=== PATIENT | female | born 1975 | race Caucasian/White ===

== ENCOUNTER 2016-10-28 19:45 | Inpatient (IN) | payer MEDICARE, OTHER ==
[~2016-10-28] VITALS: Ht 157.5 cm; Wt 95.9 kg
[~2016-10-28 19:45] MED LIST: BACLOFEN10 MG PO; BACLOFEN20 MG PO; BACTRIM DS TAB1 EACH PO; CLARITIN10 MG PO; ECHINACEA400 MG PO; FLEXERIL10 MG PO; FUROSEMIDE20 MG PO; HIBICLENS118 ML TOP; HYDROCODON-ACE1 EA10 PO; HYDROCODON-ACE1 EA11 PO; HYDROXYZINE HCL50 MG PO; KEFLEX500 MG PO; LASIX20 MG PO; LYRICA100 MG PO; MACROBID 100 M100 MG PO; MELOXICAM15 MG PO; NORCO 5-325 TA1 EACH PO; OMEPRAZOLE40 MG PO; PERCOCET 10-321 EACH PO; PERCOCET 5-3251 EACH PO; POTASSIUM CHLO20 ME2 PO; PREDNISONE20 MG PO; PROVENTIL HFA6.7 GM INH; RANITIDINE HCL150 MG PO; ROBAXIN500 MG PO; SEPTRA DS TABL1 EACH PO; TIAGABINE HCL2 MG PO; ULTRAM50 MG PO; VENTOLIN HFA18 GM INH; VISTARIL25 MG PO; VOLTAREN75 MG PO; WELLBUTRIN SR200 MG PO
[2016-10-28] MEDS ORDERED: OXAPROZIN600 MG PO (20:10)
[2016-10-29] MEDS ORDERED: IMITREX50 MG PO (00:45)
[2016-10-30] MEDS ORDERED: NORCO 5-325 TA1 EACH PO (09:42)
[2016-10-30] MEDS ORDERED: BACTROBAN NASAL1 GM NAS (09:43)
[2016-10-30] MEDS ORDERED: BACTRIM DS TAB1 EACH PO (09:44)
[2016-10-30] MEDS ORDERED: CLEOCIN HCL300 MG PO (09:46)
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
== END 2016-10-30 10:40 | disposition home or self-care (01) | DRG 581 ==
LOC: ED 19:45 → MS 19:47 → ED 19:47 → MS 22:59 → ED 22:59 → MS 10-29 16:35
PROVIDERS: ADMIT Colon & Rectal Surgery
PROC: 0J9D0ZZ Drainage of Right Upper Arm Subcutaneous Tissue and Fascia, Open Approach (ICD-10-PCS; principal; 2016-10-29 10:45)
DX: L02.411 Cutaneous abscess of right axilla (principal); F31.9 Bipolar disorder, unspecified; G62.9 Polyneuropathy, unspecified; J45.998 Other asthma; G89.29 Other chronic pain; F17.200 Nicotine dependence, unspecified, uncomplicated; Z88.8 Allergy status to other drugs, medicaments and biological substances; Z79.899 Other long term (current) drug therapy; Z94.5 Skin transplant status; Z87.828 Personal history of other (healed) physical injury and trauma
CPT/HCPCS: 00400; 76881; 80053; 85025; 87040; 87070; 87075; 87076; 87077; 87185; 87205; 94760; 94762; 99406; J1170; J1644; J2405; J2704; J3010; J3370; J7060

== ENCOUNTER 2016-11-25 21:05 | Emergency (ER) | payer MEDICARE, OTHER ==
[~2016-11-25] VITALS: Ht 157.5 cm; Wt 91.2 kg
[~2016-11-25 21:05] MED LIST changes: +BACTROBAN NASAL1 GM NAS; +CLEOCIN HCL300 MG PO; +IMITREX50 MG PO; +OXAPROZIN600 MG PO
[2016-11-26] MEDS ORDERED: PROTONIX40 MG PO (00:19)
== END 2016-11-26 00:33 | disposition home or self-care (01) ==
LOC: ED 21:05
DX: R10.11 Right upper quadrant pain (principal); F31.9 Bipolar disorder, unspecified; J45.909 Unspecified asthma, uncomplicated; F17.200 Nicotine dependence, unspecified, uncomplicated; Z98.51 Tubal ligation status; Z90.49 Acquired absence of other specified parts of digestive tract; Z88.8 Allergy status to other drugs, medicaments and biological substances; Z79.899 Other long term (current) drug therapy
CPT/HCPCS: 71020; 74177; 80053; 81001; 83690; 84703; 85025; 85379; 96361; 96374; 99284; J1885; J7030; Q9967

== ENCOUNTER 2017-04-26 14:47 | Emergency (ER) | payer MEDICARE, OTHER ==
[~2017-04-26] VITALS: Ht 157.5 cm; Wt 91.2 kg
[~2017-04-26 14:47] MED LIST changes: +PROTONIX40 MG PO
== END 2017-04-26 15:09 | disposition short-term general hospital (02) ==
LOC: ED 14:47
DX: R09.81 Nasal congestion (principal)

== ENCOUNTER 2017-06-23 10:19 | Emergency (ER) | payer MEDICARE, OTHER ==
[~2017-06-23] VITALS: Ht 157.5 cm; Wt 73.9 kg
[2017-06-23] MEDS ORDERED: TESSALON PERLE100 MG PO (11:20)
[2017-06-23] MEDS ORDERED: TAMIFLU75 MG PO (11:20)
== END 2017-06-23 11:27 | disposition home or self-care (01) ==
LOC: ED 10:19
DX: J10.1 Influenza due to other identified influenza virus with other respiratory manifestations (principal); F31.9 Bipolar disorder, unspecified; J45.909 Unspecified asthma, uncomplicated; F17.200 Nicotine dependence, unspecified, uncomplicated; Z88.8 Allergy status to other drugs, medicaments and biological substances; Z79.899 Other long term (current) drug therapy
CPT/HCPCS: 71045; 80048; 85025; 87502; 94640; 99283

== ENCOUNTER 2017-07-02 14:47 | Emergency (ER) | payer MEDICARE, OTHER ==
[~2017-07-02] VITALS: Ht 157.5 cm; Wt 73.9 kg
[~2017-07-02 14:47] MED LIST changes: +TAMIFLU75 MG PO; +TESSALON PERLE100 MG PO
[2017-07-02] MEDS ORDERED: QUETIAPINE FUMA50 MG PO (17:13)
[2017-07-02] MEDS ORDERED: ZOFRAN ODT4 MG PO (17:41)
== END 2017-07-02 17:58 | disposition home or self-care (01) ==
LOC: ED 14:47
DX: K85.90 Acute pancreatitis without necrosis or infection, unspecified (principal); F17.200 Nicotine dependence, unspecified, uncomplicated; Z88.8 Allergy status to other drugs, medicaments and biological substances; Z79.899 Other long term (current) drug therapy
CPT/HCPCS: 71045; 80053; 81001; 83690; 85025; 96374; 96375; 99284; J1200; J1630; J2405

== ENCOUNTER 2019-08-07 19:59 | Emergency (ER) | payer MEDICARE, OTHER ==
[~2019-08-07] VITALS: Ht 157.5 cm; Wt 68.0 kg
--- OUTSIDE RECORDS SUMMARY | ~2019-08-07 | XMS | Encounter Summary ---
Demographics + + + | Address | [address] | | | [place] [address] | + + + | Home Phone | | + + + | Preferred Language | Unknown | + + + | Marital Status | Unknown | + + + | Scientology Affiliation | Unknown | + + + | Race | Unknown | + + + | Ethnic Group | Unknown | + + + Author + + + | Author | [facility] | + + + | Organization | [facility] | + + + | Address | Unknown | + + + | Phone | Unavailable | + + + Care Team Providers + +------+ + | Care Respiratory Therapist Name | Role | Phone | + +------+ + PCP | Unavailable | + +------+ + Encounter Details +--------+ + + + + | Date | Type | Department | Care Team | Description | +--------+ + + + + | 07/14/ | ED Progress | [facility] | Gail Jama PA-C | ED Progress Note | | 2018 | | [address] | [address] | | | | Note-Transc | [place], [place] | [place] [address] | | | | ribed | [phone] | [phone] | | | | | | | | +--------+ + + + + Social History + +-------+ +--------+------+ | Tobacco Use | Types | Packs/Day | Years | Date | | | | | Used | | + +-------+ +--------+------+ | Never Assessed | | | | | + +-------+ +--------+------+ + + + | Sex Assigned at | Date Recorded | | | | + + + | Not on file | | + + + + + + + | Job Start Date | Occupation | Industry | + + + + | Not on file | Not on file | Not on file | + + + + + + + + | Travel History | Travel Start | Travel End | + + + + + + | No recent travel history available. | + + documented as of this encounter Plan of Treatment Not on filedocumented as of this encounter Visit Diagnoses Not on filedocumented in this encounter"
--- OUTSIDE RECORDS SUMMARY | ~2019-08-07 | XMS | Encounter Summary ---
Demographics + + + | Address | [address] | | | [place] [address] | + + + | Home Phone | | + + + | Preferred Language | Unknown | + + + | Marital Status | | + + + | Cheondoism Affiliation | Unknown | + + + | Race | Unknown | + + + | Ethnic Group | Unknown | + + + Author + + + | Author | [facility] | | | and [place] | + + + | Organization | [facility] | | | and [place] | + + + | Address | Unknown | + + + | Phone | Unavailable | + + + Support + + +---------+ + | Name | Relationship | Address | Phone | + + +---------+ + | Mala Wilkinson | ECON | Unknown | | + + +---------+ + Care Team Providers + +------+ + | Care Retinal Angiographer Name | Role | Phone | + +------+ + PCP | Unavailable | + +------+ + Encounter Details +--------+ + + + + | Date | Type | Department | Care Team | Description | +--------+ + + + + | 08/31/ | Hospital | [facility] | | | | 1997 | Encounter | [facility] | | | | | | CENTER [address] | | | | | | [place] [address] | | | | | | [address] | | | | | | [phone] | | | +--------+ + + + [...]
--- OUTSIDE RECORDS SUMMARY | ~2019-08-07 | XMS | Encounter Summary ---
Demographics + + + | Address | [address] | | | [place] [address] | + + + | Home Phone | | + + + | Preferred Language | Unknown | + + + | Marital Status | | + + + | Latter-Day Affiliation | Unknown | + + + | Race | Unknown | + + + | Ethnic Group | Unknown | + + + Author + + + | Author | [facility] | | | and [place] | + + + | Organization | [facility] | | | and [place] [...] Team Providers + +------+ + | Care Florist Supplies Salesperson Name | Role | Phone | + +------+ + | Lory Munoz MD | PCP | | + +------+ + Reason for Visit + + + | Reason | Comments | + + + | ED Follow-up | | + + + Encounter Details +--------+ + + + + | Date | Type | Department | Care Team | Description | +--------+ + + + + | 11/14/ | Telephone | [facility] | [facility] | ED Follow-up | | 2018 | | [facility] | [address] | | | | | EMERGENCY [address] | [place], | | | | | [place] | [place] [address] | | | | | [phone] | [phone] | | | | | [phone] | | | +--------+ + + + + Social History + +-------+ +--------+------+ | Tobacco Use | Types | Packs/Day | Years | Date | | | | | Used | | + +-------+ +--------+------+ | Current Every Day | | | | | | Smoker | | | | | + +-------+ +--------+------+ + +---+---+---+ | Smokeless Tobacco: | | | | | Never Used | | | | + +---+---+---+ + + +---------+ + | Alcohol Use | Drinks/Week | oz/Week | Comments | + + +---------+ + | Yes | | | rarely | + + +---------+ + + + + | Sex Assigned at [...]
--- OUTSIDE RECORDS SUMMARY | ~2019-08-07 | XMS | Clinical Summary ---
Demographics + + + | Address | [address] | | | [place] [address] | + + + | Home Phone | | + + + | Preferred Language | Unknown | + + + | Marital Status | | + + + | Uatsdin Affiliation | Unknown | + + + | Race | Unknown | + + + | Ethnic Group | Unknown | + + + Author + + + | Author | [facility] | | | and [place] | + + + | Organization | [facility] | | | and [place] [...] Team Providers + +------+ + | Care Verification Specialist Name | Role | Phone | + +------+ + | Lory Munoz MD | PCP | | + +------+ + Allergies + + + + + + | Active Allergy | Reactions | Severity | Noted | Comments | | | | | Date | | + + + + + + | Lamotrigine | Hives | | 11/12/19 | | | | | | 18 | | + + + + + + | Marijuana (Cannabis | | | 11/12/19 | | | Sativa) | | | 18 | | + + + + + + | Gabapentin | Other (See Comments) | | 11/12/19 | Seizures | | | | | 18 | | + + + + + + | Dronabinol | | | 11/12/19 | | | | | | 18 | | + + + + + + Medications No known medications Active Problems Not on file Social History + +-------+ +--------+------+ | Tobacco [...] recent travel history available. | + + Last Filed Vital Signs + + + + + | Vital Sign | Reading | Time Taken | Comments | + + + + + | Blood Pressure | 102/53 | 11/12/2017 2:01 AM | | | | | PDT | | + + + + + | Pulse | 62 | 11/12/2017 2:01 AM | | | | | PDT | | + + + + + | Temperature | 36.4 C (97.5 F) | 11/11/2017 11:10 PM | | | | | PDT | | + + + + + | Respiratory Rate | 16 | 11/11/2017 11:10 PM | | | | | PDT | | + + + + + | Oxygen Saturation | 99% | 11/12/2017 2:01 AM | | | | | PDT | | + + + + + | Inhaled Oxygen | - | - | | | Concentration | | | | + + + + + | Weight | 69.4 kg (153 lb) | 11/11/2017 11:10 PM | | | | | PDT | | + + + + + | Height | 157.5 cm (5' 2") | 11/11/2017 11:10 PM | | | | | PDT | | + + + + + | Body Mass Index | 27.98 | 11/11/2017 11:10 PM | | | | | PDT | | + + + + + Plan of Treatment + + + + + | Health Maintenance | Due Date | Last Done | Comments | + + + + + | Vaccine: | | | | | Pneumococcal 19-64 | 2 | | | | (1 of 1 - PPSV23) | | | | + + + + + | Vaccine: | | | | | Dtap/Tdap/Td (1 - | 7 | | | | Tdap) | | | | + + + + + | Cervical Cancer | | | | | Screening (Pap) | 6 | | | + + + + + | Adult Annual | | | | | Wellness Visit | 8 | | | + + + + + | Vaccine: Influenza | | | | | (Season Ended) | 0 | | | + + + + + Results Not on filefrom Last 3 Months Insurance + +--------+ +--------+ +---------+--------+ | Payer | Benefi | Subscriber | Effect | Phone | Address | Type | | | t Plan | ID | lefty | | | | | | / | | Dates | | | | | | Group | | | | | | + +--------+ +--------+ +---------+--------+ | MEDICARE | MEDICA | [id number] | 11/16/19 | [phone] | | Medica | | | RE | | 02-Pre | 5 | | re | | | PART A | | sent | | | | | | AND B | | | | | | + +--------+ +--------+ +---------+--------+ | [employer] | MODA | [id number] | | [phone] | | Medica | | MEDICAID HMO | HEALTH | | [phone]-[id number] | 1 | | id | | | MDCD | | esent | | | | | | HMO [place] | | | | | | + +--------+ +--------+ +---------+--------+ + +--------+ +--------+ + + | Guarantor Name | Accoun | Relation to | Date | Phone | Billing Address | | | t Type | Patient | of | | | | | | | | | | + +--------+ +--------+ + + | Marcie Gómez | Person | Self [birth year] | [address] | | | al/Anthony | | 1976 | [phone] | [place] | | | [place]allely | | | [address] (Home) | [address] | + +--------+ +--------+ + + Advance Directives + + + + + | Type | Date Recorded | Patient | Explanation | | | | Hot Top Liner | | + + + + + | Power of | | | | | Instrument Mechanics Supervisor | | | | + + + + + | Advance | 11/12/2017 12:28 | | | | Directive | AM | | | + + + + +
--- OUTSIDE RECORDS SUMMARY | ~2019-08-07 | XMS | Encounter Summary ---
Demographics + + + | Address | [address] | | | [place] [address] | + + + | Home Phone | | + + + | Preferred Language | Unknown | + + + | Marital Status | | + + + | Druze Affiliation | Unknown | + + + | Race | Unknown | + + + | Ethnic Group | Unknown | + + + Author + + + | Author | [facility] | | | and Justinoana | + + + | Organization | [facility] | | | and Justinoana | [...] Team Providers + +------+ + | Care Client Services Administrator Name | Role | Phone | + +------+ + | Lory Munoz MD | PCP | | + +------+ + Reason for Visit + + + | Reason | Comments | + + + | Allergic Reaction | | + + + | Shortness of Breath | | + + + | Hoarse | | + + + Encounter Details +--------+ + + + + | Date | Type | Department | Care Team | Description | +--------+ + + + + | 11/11/ | Emergency | [facility] | Rudy Pfeiffer MD | Laryngospasm | | 2018 - | | [facility] | [address] | (Primary Dx) | | | | EMERGENCY [address] [place], | | | 11/12/ | | [place] | [place] | | | 2017 | | [address] | [phone] | | | | | [phone] | | | +--------+ + + + [...] + + documented as of this encounter Last Filed Vital Signs + + + [...] | | + + + + + documented in this encounter Discharge Instructions Instructions Rudy Pfeiffer MD - 11/12/2017If you're having worsening trouble breathing or spe aking, please return to ER for recheck. Otherwise, you can follow-up with her regular docto r when you return home. documented in this encounter Plan of Treatment + +------+--------+ + + | Name | Type | Priori | Associated Diagnoses | Date/Time | | | | ty | | | + +------+--------+ + + | ED INFORMATION | FRANCI | Routin | | 11/11/2017 11:09 PM | | EXCHANGE | | e | | PDT | + +------+--------+ + + documented as of this encounter Procedures + +--------+ + + + | Procedure Name | Priori | Date/Time | Associated Diagnosis | Comments | | | ty | | | | + +--------+ + + + | ED INFORMATION | Routin | 11/11/2017 | | | | EXCHANGE | e | 11:09 PM | | | | | | PDT | | | + +--------+ + + + +---+--------+ | | | | | Proced | | | ure | | | Note - | | | Kim, | | | Lab In | | | | | | Hlseve | | | n - | | | 07/28/ | | | 2018 | | | 11:10 | | | PM PDT | | | | | | Format | | | ting | | | of | | | this | | | note | | | might | | | be | | | differ | | | ent | | | from | | | the | | | origin | | | al.KIM | | | E?NOTI | | | FICATI | | | ON?07/ | | | 28/201 | | | 8 | | | 23:06? | | | TINNEL | | | L, | | | CECI | | | M?MRN: | | | | | | [id number] | | | [id number] | | | his | | | patien | | | t has | | | regist | | | ered | | | at the | | | | | | Provid | | | ence | | | Region | | | al | | | Medica | | | l | | | [place] | | | t | | | Emerge | | | ncy | | | Depart | | | ment | | | For | | | more | | | inform | | | ation | | | visit: | | | | | | https: | | | //prov | | | .ediec | | | arepla | | | n.com/ | | | patien | | | t/dbdf | | | [id number] | | | [id number] | | | [id number] | | | f-[id number] | | | [id number] | | | 15 | | | Securi | | | ty | | | Events | | | No | | | recent | | | | | | Securi | | | ty | | | Events | | | | | | curren | | | tly on | | | | | | fileED | | | Care | | | Guidel | | | georgette | | | from | | [facility] | | | [facility] | | | alLast | | | | | | Update | | | d: | | | 4/17/1 | | | 8 | | | 12:08 | | | PM | | | Care | | | Recomm | | | endati | | | on:PAT | | | IENT | | | TO BE | | | ENCOUR | | | AGED | | | TO | | | ENGAGE | | | IN | | | DETOX/ | | | REHAB | | | SERVIC | | | ES.? | | | IN | | | [place] | | | [place] | | | [place] | | | | | | PATIEN | | | T CAN | | | CALL | | | MICHELLE | | | KASHIF | | | -WILLI | | | AMS AT | | | | | | [phone] | | .These | | | are | | | guidel | | | georgette | | | and | | | the | | | provid | | | er | | | should | | | | | | exerci | | | se | | | clinic | | | al | | | judgme | | | nt | | | when | | | provid | | | ing | | | care.R | | | ecent | | | Emerge | | | ncy | | | Depart | | | ment | | | Visit | | | Summar | | | yAdmit | | | Date | | | Facili | | | ty | | | City | | | State | | | Type | | | Major | | | Type | | | Diagno | | | ses or | | | Chief | | | | | | Compla | | | int | | | Gordon | | | 28, | | | 2018 | | | Provid | | | ence | | | Region | | | al | | | Medica | | | l | | | [place] | | | t | | | [place] | | | [place] | | | Emerge | | | ncy | | | Emerge | | | ncy | | | E.D. | | | Visit | | | Count | | | (12 | | | mo.)Fa | | | cility | | | | | | Visits | | | Low | | | Acuity | | | KP | | | [facility] | | | de | | | Medica | | | l | | | Center | | | 1 0 | | | Legacy | | | [place] | | | [place] | | | 1 0 | | | Provid | | | ence | | | Region | | | al | | | Medica | | | l | | | [place] | | | t 1 0 | | | [facility] | | | y | | | Commun | | | ity | | | Hospit | | | al 2 0 | | | [facility] [place] | | | y | | | Hospit | | | al 4 0 | | | Total | | | 9 0 | | | Note: | | | Visits | | | | | | indica | | | te | | | total | | | known | | | visits | | | . | | | Medica | | | id Low | | | | | | Acuity | | | Dx | | | are | | | the | | | number | | | of | | | primar | | | y | | | diagno | | | ses on | | | the | | | Medica | | | id's | | | Low | | | Acuity | | | dx | | | list. | | | | | | Recent | | | | | | Inpati | | | ent | | | Visit | | | Summar | | | yNo | | | record | | | ed | | | inpati | | | ent | | | visits | | | . PDMP | | | | | | Report | | | PDMP | | | query | | | found | | | no | | | report | | | .Care | | | Provid | | | ersPro | | | vider | | | PRC | | | Type | | | Phone | | | Fax | | | Servic | | | e | | | Dates | | | LORY | | | JOHNSO | | | N, AIR POLLUTION SPECIALIST | | | Primar | | | y Care | | | (541) | | | | | | [phone] | | [phone] | | | ([phone] | | | [phone] | | | [phone] | | | Curren | | | t | | | Anthony | | | enson, | | | Munir | | | D MD | | | Primar | | | y Care | | | (999) | | | | | | [phone] | | | 99 | | | Curren | | | t | | | Criter | | | ia met | | | Care | | | | | | Guidel | | | inesKn | | | own | | | Aliase | | | sNIKKI | | | | | | TINNEL | | | L | | | Added | | | by [facility] [facility] | | | y | | | Hospit | | | al | | | Added | | | on Apr | | | 11, | | | 2018 | | | The | | | above | | | inform | | | ation | | | is | | | provid | | | ed for | | | the | | | sole | | | purpos | | | e of | | | patien | | | t | | | treatm | | | ent. | | | Use of | | | this | | | inform | | | ation | | | beyond | | | the | | | terms | | | of | | | Data | | | Sharin | | | g | | | Memora | | | ndum | | | of | | | Unders | | | tandin | | | g and | | | Licens | | | e | | | Agreem | | | ent is | | | | | | prohib | | | ited. | | | In | | | certai | | | n | | | cases | | | not | | | all | | | visits | | | may | | | be | | | repres | | | ented. | | | | | | Consul | | | t the | | | aforem | | | ention | | | ed | | | facili | | | ties | | | for | | | additi | | | onal | | | inform | | | ation. | | | ? | | | 2018 | | | Collec | | | tive | | | Medica | | | l | | | Techno | | | logies | | | , Inc[employer] | | | - | | | [place] | | | [place] | | | [place], | | | [place] - | | | [email or web address]@c | | | ollect | | | ivemed | | | icalte | | | [email or web address] | | | | +---+--------+ documented in this encounter Visit Diagnoses + + | Diagnosis | + + | Laryngospasm - Primary Laryngeal spasm | + + documented in this encounter Administered Medications + +--------+ +--------+------+------+ | Medication Order | MAR | Action | Dose | Rate | Site | | | Action | Date | | | | + +--------+ +--------+------+------+ | albuterol 2.5 mg/3 mL nebulizer | Given | 11/13/19 | 2.5 mg | | | | solution 2.5 mg 2.5 mg, | | 18 1:35 | | | | | Nebulization, ONCE, 11/12/17 | | AM PDT | | | | | at 0110, For 1 dose, RT will | | | | | | | administer., | | | | | | + +--------+ +--------+------+------+ +---+---+ | | | +---+---+ + +-------+ +-------+---+---+ | albuterol-ipratropium (DUONEB) | Given | 11/12/19 | 3 mLs | | | | 2.5-0.5 mg/3 mL nebulizer | | 18 11:47 | | | | | solution 3 mL 3 mL, | | PM PDT | | | | | Nebulization, RT Once, Sat | | | | | | | 11/11/17 at 2345, For 1 dose | | | | | | + +-------+ +-------+---+---+ +---+---+ | | | +---+---+ documented in this encounter
--- OUTSIDE RECORDS SUMMARY | ~2019-08-07 | XMS | Encounter Summary ---
Demographics + + + | Address | [address] | | | [place] [address] | + + + | Home Phone | | + + + | Preferred Language | Unknown | + + + | Marital Status | | + + + | Catholic Affiliation | Unknown | + + + | Race | Unknown | + + + | Ethnic Group | Unknown | + + + Author + + + | Author | [facility] | | | and Justinoana | + + + | Organization | [facility] | | | and Justinoana [...] Team Providers + +------+ + | Care Cyber Incident Handler Name | Role | Phone | + [...] [place] | | | 2017 | | [address] | [phone] | | | | | [phone] | | | +--------+ + + + [...] M?MRN: | | | | | | [id number] | | | [id number] | | | his | | | [...] | | | [id number] | | | [id number] | | | 15 | | | [...] | | | St. | | | [place] | | | y | | | [...] | | | St. | | | [place] | | | y | | | [...] | | JOHNSO | | | N, PRECISION MACHINE OPERATOR | | | Primar | | | [...] | | | St. | | | [place] | | | y | | | [...]
--- OUTSIDE RECORDS SUMMARY | ~2019-08-07 | XMS | Encounter Summary ---
Demographics + + + | Address | [address] | | | [place] [address] | + + + | Home Phone | | + + + | Preferred Language | Unknown | + + + | Marital Status | | + + + | Druze Affiliation | Unknown | + + + | Race | Unknown | + + + | Ethnic Group | Unknown | + + + Author + + + | Author | [facility] | | | and Justinoana | + + + | Organization | [facility] | | | and Justinoana [...] Team Providers + +------+ + | Care Box Press Operator Name | Role | Phone | + +------+ + PCP | Unavailable | + +------+ + Encounter Details +--------+ + + + + | Date | Type | Department | Care Team | Description | +--------+ + + + + | 08/31/ | Hospital | [facility] | | | | 1997 | Encounter | [facility] | | | | | | CENTER [address] | | | | | | [place] [address] | | | | | | [address] | | | | | | [phone] | | | +--------+ + + + [...]
--- OUTSIDE RECORDS SUMMARY | ~2019-08-07 | XMS | Clinical Summary ---
Demographics + + + | Address | [address] | | | [place] [address] | + + + | Home Phone | | + + + | Preferred Language | Unknown | + + + | Marital Status | | + + + | Congregation Affiliation | Unknown | + + + | Race | Unknown | + + + | Ethnic Group | Unknown | + + + Author + + + | Author | [facility] | | | and Justinoana | + + + | Organization | [facility] | | | and Justinoana [...] Team Providers + +------+ + | Care Surgical Supply Assistant Name | Role | Phone | + [...] +--------+ +---------+--------+ | MEDICARE | MEDICA | [id number] | 11/16/19 | [phone] | | Medica | | | RE | | 02-Pre | 5 | | re | | | PART A | | sent | | | | | | AND B | | | | | | + +--------+ +--------+ +---------+--------+ | [employer] | MODA | [id number] | | [phone] | | Medica | [...] nallely | | | 4 (Home) | [phone] | + +--------+ +--------+ + + Advance Directives + + + + + | Type | Date Recorded | Patient | Explanation | | | | Elevator Constructor Helper | | + + + + + | Power of | | | | | Intermodal Customer Service | | | | + + + + + | Advance | 11/12/2017 12:28 | | | | Directive | AM | | | + + + + +
--- OUTSIDE RECORDS SUMMARY | ~2019-08-07 | XMS | Clinical Summary ---
Demographics + + + | Address | [address] | | | [place] [address] | + + + | Home Phone | | + + + | Preferred Language | Unknown | + + + | Marital Status | Unknown | + + + | Orthodox Affiliation | Unknown | + + + | Race | Unknown | + + + | Ethnic Group | Unknown | + + + Author + + + | Organization | Unknown | + + + | Address | Unknown | + + + | Phone | Unavailable | + + + Care Team Providers + +------+ + | Care Chemical Project Engineer Name | Role | Phone | + +------+ + PCP | Unavailable | + +------+ + Source Comments BRIAN is fully live on both [facility] Ambulatory and [facility] InPatient.[facility] Allergies Not on File Medications Not on file Active Problems Not on file Social History [...] | + + Last Filed Vital Signs Not on file Plan of Treatment + + + + + | Health Maintenance | Due Date | Last Done | Comments | + + + + + | Influenza (Flu) | | | | | vaccination (#1) | 9 | | | + + + + + | Pneumococcal | Aged Out | | No longer eligible | | vaccination | | | based on patient's | | | | | age to complete this | | | | | topic | + + + + + Results Not on filefrom Last 3 Months"
--- OUTSIDE RECORDS SUMMARY | ~2019-08-07 | XMS | Encounter Summary ---
Demographics + + + | Address | [address] | | | [place] [address] | + + + | Home Phone | | + + + | Preferred Language | Unknown | + + + | Marital Status | Unknown | + + + | Gnosticism Affiliation | Unknown | + + + [...] Team Providers + +------+ + | Care Marine Railway Operator Name | Role | Phone | + +------+ + PCP | Unavailable | + +------+ + Encounter Details +--------+ + + + + | Date | Type | Department | Care Team | Description | +--------+ + + + + | 07/16/ | ED Progress | [facility] | Gonzalez Quintero, | ED Progress Note | | 2018 | | [address] | MD [facility] | | | | Note-Transc | [place], [place] | [facility] | | | | ribed | [address] | [address] | | | | | | [place] [address] | | | | | | [phone] | | | | | | | [...]
--- OUTSIDE RECORDS SUMMARY | ~2019-08-07 | XMS | Encounter Summary ---
Demographics + + + | Address | [address] | | | [place] [address] | + + + | Home Phone | | + + + | Preferred Language | Unknown | + + + | Marital Status | Unknown | + + + | Anglican Affiliation | Unknown | + + + [...] Team Providers + +------+ + | Care Rn Urology Name | Role | Phone | + [...] [address] | | | | Note-Transc | [place], [place] | [place] [address] | | | | ribed | [address] | [phone] | | | | | | | [...]
--- OUTSIDE RECORDS SUMMARY | ~2019-08-07 | XMS | Encounter Summary ---
Demographics + + + | Address | [address] | | | [place] [address] | + + + | Home Phone | | + + + | Preferred Language | Unknown | + + + | Marital Status | | + + + | Rastafarian Affiliation | Unknown | + + + | Race | Unknown | + + + | Ethnic Group | Unknown | + + + Author + + + | Author | [facility] | | | and Justinoana | + + + | Organization | [facility] | | | and Justinoana [...] Team Providers + +------+ + | Care Public Service Director Name | Role | Phone | + +------+ + PCP | Unavailable | + +------+ + Encounter Details +--------+ + + + + | Date | Type | Department | Care Team | Description | +--------+ + + + + | 07/01/ | Hospital | [facility] | | | | 1997 | Encounter | [facility] | | | | | | CENTER [address] | | | | | | [place] [address] | | | | | | [address] | | | | | | [phone] | | | +--------+ + + + [...]
--- OUTSIDE RECORDS SUMMARY | ~2019-08-07 | XMS | Encounter Summary ---
Demographics + + + | Address | [address] | | | [place] [address] | + + + | Home Phone | | + + + | Preferred Language | Unknown | + + + | Marital Status | | + + + | Advent Affiliation | Unknown | + + + | Race | Unknown | + + + | Ethnic Group | Unknown | + + + Author + + + | Author | [facility] | | | and Justinoana | + + + | Organization | [facility] | | | and Justinoana [...] Team Providers + +------+ + | Care Skip Tracer Name | Role | Phone | + +------+ + PCP | Unavailable | + +------+ + Encounter Details +--------+ + + + + | Date | Type | Department | Care Team | Description | +--------+ + + + + | 12/26/ | Hospital | [facility] | | | | 1997 | Encounter | [facility] EM[facility]Y | | | | | | CENTER [address] | | | | | | [place] [address] | | | | | | [address] | | | | | | [phone] | | | +--------+ + + + [...]
--- OUTSIDE RECORDS SUMMARY | ~2019-08-07 | XMS | Encounter Summary ---
Demographics + + + | Address | [address] | | | [place] [address] | + + + | Home Phone | | + + + | Preferred Language | Unknown | + + + | Marital Status | | + + + | Roman Catholic Affiliation | Unknown | + + + | Race | Unknown | + + + | Ethnic Group | Unknown | + + + Author + + + | Author | [facility] | | | and Justinoana | + + + | Organization | [facility] | | | and Justinoana | [...] Team Providers + +------+ + | Care Siding Coreboard Inspector Name | Role | Phone | + [...] 11/14/ | Telephone | [facility] | Flory Jane | ED Follow-up | | 2018 | | [facility] | [address] | | | | | EMERGENCY [address] | [place], | | | | | [place] | [place] [address] | | | | | [address] | [phone] | | | | | [phone] | | | +--------+ + + + [...]
--- OUTSIDE RECORDS SUMMARY | ~2019-08-07 | XMS | Encounter Summary ---
Demographics + + + | Address | [address] | | | [place] [address] | + + + | Home Phone | | + + + | Preferred Language | Unknown | + + + | Marital Status | Unknown | + + + | Cheondoism Affiliation [...] Team Providers + +------+ + | Care Drafter Marine Name | Role | Phone | + [...] [facility] | | | | Note-Transc | [place], [place] | | | | | ribed | [address] | [address] | | | | | | [place] [address] | | | | | | [phone] | | | | | | | [...]
--- OUTSIDE RECORDS SUMMARY | ~2019-08-07 | XMS | Encounter Summary ---
Demographics + + + | Address | [address] | | | [place] [address] | + + + | Home Phone | | + + + | Preferred Language | Unknown | + + + | Marital Status | | + + + | Buddhism Affiliation | Unknown | + + + | Race | Unknown | + + + | Ethnic Group | Unknown | + + + Author + + + | Author | [facility] | | | and Justinoana | + + + | Organization | [facility] | | | and [...] Team Providers + +------+ + | Care Dairy Consultant Name | Role | Phone | + +------+ + PCP | Unavailable | + +------+ + Encounter Details +--------+ + + + + | Date | Type | Department | Care Team | Description | +--------+ + + + + | 07/01/ | Hospital | [facility] | | | | 1997 | Encounter | MED CTR EMERGENCY | | | | | | CENTER [address] | | | | | | [place] [address] | | | | | | [address] | | | | | | [phone] | | | +--------+ + + + [...]
--- OUTSIDE RECORDS SUMMARY | ~2019-08-07 | XMS | Encounter Summary ---
Demographics + + + | Address | [address] | | | [place] [address] | + + + | Home Phone | | + + + | Preferred Language | Unknown | + + + | Marital Status | | + + + | Yazdanism Affiliation | Unknown | + + + | Race | Unknown | + + + | Ethnic Group | Unknown | + + + Author + + + | Author | [facility] | | | and Justinoana | + + + | Organization | [facility] | | | and Justinoana | [...] Team Providers + +------+ + | Care Timber Poisoner Name | Role | Phone | + +------+ + PCP | Unavailable | + +------+ + Encounter Details +--------+ + + + + | Date | Type | Department | Care Team | Description | +--------+ + + + + | 12/26/ | Hospital | [facility] | | | | 1997 | Encounter | MED CTR EMERGENCY | | | | | | CENTER [address] | | | | | | [place] [address] | | | | | | [address] | | | | | | [phone] | | | +--------+ + + + [...]
--- OUTSIDE RECORDS SUMMARY | ~2019-08-07 | XMS | Clinical Summary ---
Demographics + + + | Address | [address] | | | [place] [address] | + + + | Home Phone [...] Team Providers + +------+ + | Care Electric Motor Mechanic Name | Role | Phone | + +------+ + PCP | Unavailable | + +------+ + Source Comments BRIAN is fully live on both [facility] Ambulatory and [facility] InPatient.[facility] Allergies Not on File Medications Not on [...]
[~2019-08-07 19:59] MED LIST changes: +QUETIAPINE FUMA50 MG PO; +ZOFRAN ODT4 MG PO
[2019-08-07] MEDS ORDERED: NAPROXEN500 MG PO (20:03)
== END 2019-08-07 21:00 | disposition home or self-care (01) ==
LOC: ED 19:59
DX: B34.9 Viral infection, unspecified (principal); F17.200 Nicotine dependence, unspecified, uncomplicated; Z88.8 Allergy status to other drugs, medicaments and biological substances
CPT/HCPCS: 99283

== ENCOUNTER 2020-04-24 10:57 | Emergency (ER) | payer MEDICARE, OTHER ==
[~2020-04-24] VITALS: Ht 157.5 cm; Wt 68.0 kg
[~2020-04-24 10:57] MED LIST changes: +NAPROXEN500 MG PO
== END 2020-04-24 13:17 | disposition home or self-care (01) ==
LOC: ED 10:57
DX: K20.90 Esophagitis, unspecified without bleeding (principal); J02.9 Acute pharyngitis, unspecified; F17.200 Nicotine dependence, unspecified, uncomplicated; Z88.8 Allergy status to other drugs, medicaments and biological substances
CPT/HCPCS: 96374; 99283-25; J0171; J7512; Q0163

== ENCOUNTER 2020-06-27 23:05 | Emergency (ER) | payer MEDICARE, OTHER ==
[~2020-06-27] VITALS: Ht 157.5 cm; Wt 68.0 kg
[2020-06-28] MEDS ORDERED: HYDROCODON-ACE1 EA10 PO (00:16)
== END 2020-06-28 00:33 | disposition home or self-care (01) ==
LOC: ED 23:05
DX: S40.012A Contusion of left shoulder, initial encounter (principal); F17.200 Nicotine dependence, unspecified, uncomplicated; Z88.8 Allergy status to other drugs, medicaments and biological substances; V29.9XXA Motorcycle rider (driver) (passenger) injured in unspecified traffic accident, initial encounter
CPT/HCPCS: 73030; 99283-25

== ENCOUNTER 2022-03-12 15:53 | Emergency (ER) | payer MEDICARE, OTHER ==
[~2022-03-12] VITALS: Ht 157.5 cm; Wt 68.0 kg
== END 2022-03-12 19:57 | disposition home or self-care (01) ==
LOC: ED 15:53
DX: F15.10 Other stimulant abuse, uncomplicated (principal); R11.2 Nausea with vomiting, unspecified; F17.200 Nicotine dependence, unspecified, uncomplicated; Z88.8 Allergy status to other drugs, medicaments and biological substances
CPT/HCPCS: 36415; 80053; 83690; 84703; 85025; 99284; G0480

== ENCOUNTER 2023-01-18 04:02 | Emergency (ER) | payer MEDICARE, OTHER ==
[2023-01-18 04:59] LABS: BILIRUBIN, URINE NEGATIVE (negative); BLOOD/HGB, URINE NEGATIVE (Negative); KETONE, URINE TRACE (Negative); LEUK ESTERASE, URINE NEGATIVE (negative); NITRITE, URINE POSITIVE (negative); PH, URINE 5.5 (5-7)
[2023-01-18 05:02] LABS: AMPHETAMINES, UR POSITIVE (NEGATIVE); MDMA, UR POSITIVE (NEGATIVE)
[2023-01-18 05:03] LABS: BARBITURATES, UR NEGATIVE (NEGATIVE); BENZODIAZEPINES, UR NEGATIVE (NEGATIVE); BUPRENORPHINE,UR NEGATIVE (NEGATIVE); COCAINE, UR NEGATIVE (NEGATIVE); MARIJUANA (THC), UR NEGATIVE (NEGATIVE); METHADONE, UR NEGATIVE (NEGATIVE); METHAMPHETAMINE, UR POSITIVE (NEGATIVE); OPIATES, UR NEGATIVE (NEGATIVE); OXYCODONE, UR NEGATIVE (NEGATIVE); PHENCYCLIDINE, UR NEGATIVE (NEGATIVE); TRICYCLIC ANTIDEPRESSANT, UR NEGATIVE (NEGATIVE)
[2023-01-18 05:06] LABS: EPITHELIAL CELLS, URINE SQUAMOUS 2+ /lpf (0-1+)
[2023-01-18 05:07] LABS: BACTERIA, URINE 3+ /hpf (negative); CASTS, URINE NONE SEEN \\lpf; CRYSTALS, URINE NONE SEEN (0-1+); REFLEX CULTURE, URINE No (No)
[2023-01-18 05:21] LABS: BASOPHILS 1.5 % (0-2); EOSINOPHILS 1.5 % (0-6); HEMATOCRIT 37.7 % (35.0-50.0); HEMOGLOBIN 12.7 g/dL (12.0-18.0); MCH 30.6 (27-36); MCHC 33.7 g/dl (30-36); MCV 90.7 fl (81-99); MONOCYTES 7.2 % (0-12); NEUTROPHILS 65.8 % (39-80); PLATELET COUNT 231 K/uL (140-440); RBC 4.16 M/ul (4.3-5.7); RDW 13.3 (10.5-15.0)
[2023-01-18 05:47] LABS: ACETAMINOPHEN 0 ug/mL (10-30); ALBUMIN 3.5 g/dL (3.4-5.0); ALBUMIN/GLOBULIN RATIO 1.09 (1.1-2.4); ALCOHOL, MEDICAL <3 ng/dL (<3); ALKALINE PHOSPHATASE 94 U/L (46-116); ALT (SGPT) 16 U/L (14-59); ANION GAP 14.6 (7-21); AST (SGOT) 37 U/L (15-37); BILIRUBIN, TOTAL 0.7 ng/dL (0.2-1.0); BUN/CREATININE RATIO 35.06 (6.0-28.6); CALCIUM 8.7 mg/dL (8.5-10.1); CARBON DIOXIDE 22 mmol/L (21-32); CHLORIDE 106 mmol/L (98-107); CREATININE, SERUM 0.77 mg/dL (0.55-1.02); GLOMERULAR FILTRATION RATE,EST 96 mL/min (>60); POTASSIUM 3.6 mmol/L (3.5-5.1); PROTEIN, TOTAL 6.7 g/dL (6.4-8.2); SALICYLATE 0.4 mg/dL (2.8-20.0); TSH, 3RD GENERATION 0.606 uIU/mL (0.358-3.740); UREA NITROGEN 27 mg/dL (7-18)
[2023-01-18] MEDS ORDERED: MACROBID 100 M100 MG PO (05:53)
[2023-01-18 13:48] VITALS: BP 114/78
== END 2023-01-18 13:52 | disposition home or self-care (01) ==
LOC: ED 04:02
PROVIDERS: Internal Medicine
DX: N39.0 Urinary tract infection, site not specified (principal); F15.10 Other stimulant abuse, uncomplicated; Z88.8 Allergy status to other drugs, medicaments and biological substances; Z91.048 Other nonmedicinal substance allergy status
CPT/HCPCS: 36415; 71045; 80053; 81001; 84443; 84703; 85025; 87088; 94640; 96365; 96366; 96368; 96375; 99284-25; A9270; G0480; J0696; J1100; J1200; J3411; J7030

== ENCOUNTER 2023-03-14 16:25 | Emergency (ER) | payer MEDICARE, OTHER ==
[~2023-03-14] VITALS: Ht 165.1 cm; Wt 70.7 kg
[2023-03-14] MEDS ORDERED: CLONIDINE HCL0.1 MG PO (16:57)
[2023-03-14] MEDS ORDERED: ARIPIPRAZOLE5 MG PO (16:57)
[2023-03-14] MEDS ORDERED: GABAPENTIN300 MG PO (16:58)
[2023-03-14] MEDS ORDERED: DIAZEPAM2 MG PO (16:58)
[2023-03-14 18:29] VITALS: BP 135/94
== END 2023-03-14 18:32 | disposition home or self-care (01) ==
LOC: ED 16:25
DX: T33.822A Superficial frostbite of left foot, initial encounter (principal); T33.821A Superficial frostbite of right foot, initial encounter; T33.522A Superficial frostbite of left hand, initial encounter; T33.521A Superficial frostbite of right hand, initial encounter; X31.XXXA Exposure to excessive natural cold, initial encounter; Z59.00 Homelessness unspecified; F17.200 Nicotine dependence, unspecified, uncomplicated; Z88.8 Allergy status to other drugs, medicaments and biological substances; Z79.899 Other long term (current) drug therapy
CPT/HCPCS: A9270; J1885

== ENCOUNTER 2023-03-30 06:19 | Emergency (ER) | payer MEDICARE, OTHER ==
[~2023-03-30] VITALS: Ht 165.1 cm; Wt 70.9 kg
[~2023-03-30 06:19] MED LIST changes: +ARIPIPRAZOLE5 MG PO; +CLONIDINE HCL0.1 MG PO; +DIAZEPAM2 MG PO; +GABAPENTIN300 MG PO
[2023-03-30] MEDS ORDERED: NEURONTIN300 MG PO (07:24)
[2023-03-30 10:35] VITALS: BP 161/96
== END 2023-03-30 10:35 | disposition home or self-care (01) ==
LOC: ED 06:19
DX: T22.211A Burn of second degree of right forearm, initial encounter (principal); R45.851 Suicidal ideations; F17.200 Nicotine dependence, unspecified, uncomplicated; X19.XXXA Contact with other heat and hot substances, initial encounter; Z23 Encounter for immunization; Z79.899 Other long term (current) drug therapy; Z88.8 Allergy status to other drugs, medicaments and biological substances
CPT/HCPCS: 16020; 90471; 90715; 99283

== ENCOUNTER 2023-04-07 20:04 | Emergency (ER) | payer MEDICARE, OTHER ==
[~2023-04-07] VITALS: Ht 284.5 cm; Wt 69.9 kg
[~2023-04-07 20:04] MED LIST changes: +NEURONTIN300 MG PO
[2023-04-07] MEDS ORDERED: DOXYCYCLINE HY100 MG PO (20:46)
[2023-04-07 21:01] VITALS: BP 118/79
== END 2023-04-07 21:02 | disposition home or self-care (01) ==
LOC: ED 20:04
DX: L02.415 Cutaneous abscess of right lower limb (principal); G89.29 Other chronic pain; M79.2 Neuralgia and neuritis, unspecified; F17.200 Nicotine dependence, unspecified, uncomplicated; Z88.8 Allergy status to other drugs, medicaments and biological substances; Z79.899 Other long term (current) drug therapy
CPT/HCPCS: 10060; 99283-25

== ENCOUNTER 2023-10-20 12:53 | Emergency (ER) | payer MEDICARE, OTHER ==
[~2023-10-20] VITALS: Ht 157.5 cm; Wt 69.5 kg
[~2023-10-20 12:53] MED LIST changes: +CYCLOBENZAPRINE10 MG PO; +DOXYCYCLINE HY100 MG PO; +HYDROXYZINE HCL10 MG PO; +[UNRECOGNIZED DRUG - OTHER] INH
[2023-10-20] MEDS ORDERED: SODIUM CHLORIDE 0.9% 1,000 ML IV ONE ×2 (13:30→14:30)
[2023-10-20 13:56] LABS: EOSINOPHILS 0.4 % (0-6); HEMATOCRIT 34.1 % (35.0-50.0); HEMOGLOBIN 11.2 g/dL (12.0-18.0)
[2023-10-20 13:58] LABS: BASOPHILS 0.4 % (0-2); LYMPHOCYTES 5.6 % (24-44); MCH 28.9 (27-36); MCHC 32.9 g/dl (30-36); MCV 87.7 fl (81-99); MONOCYTES 8.3 % (0-12); NEUTROPHILS 85.3 % (39-80); PLATELET COUNT 235 K/uL (140-440); RBC 3.89 M/ul (4.3-5.7); RDW 14.7 (10.5-15.0)
[2023-10-20 14:10] LABS: ALBUMIN 2.7 g/dL (3.4-5.0); ALBUMIN/GLOBULIN RATIO 0.75 (1.1-2.4); ANION GAP 9.6 (7-21); BILIRUBIN, TOTAL 0.7 ng/dL (0.2-1.0); BUN/CREATININE RATIO 12.35 (6.0-28.6); CALCIUM 7.9 mg/dL (8.5-10.1); CREATININE, SERUM 0.89 mg/dL (0.55-1.02); POTASSIUM 3.6 mmol/L (3.5-5.1); PROTEIN, TOTAL 6.3 g/dL (6.4-8.2)
[2023-10-20] MEDS ORDERED: ACETAMINOPHEN 500 MG TAB PO ONE (14:30)
[2023-10-20 14:46] LABS: BILIRUBIN, URINE NEGATIVE (negative); BLOOD/HGB, URINE TRACE-I (Negative); KETONE, URINE NEGATIVE (Negative); LEUK ESTERASE, URINE NEGATIVE (negative); NITRITE, URINE POSITIVE (negative)
[2023-10-20 14:52] LABS: EPITHELIAL CELLS, URINE SQUAMOUS 3+ /lpf (0-1+)
[2023-10-20 14:53] LABS: CRYSTALS, URINE NONE SEEN (0-1+)
[2023-10-20 14:54] LABS: BACTERIA, URINE 3+ /hpf (negative); CASTS, URINE NONE SEEN \\lpf; COLLECTION TYPE, URINE CLEAN CATCH; REFLEX CULTURE, URINE No (No)
[2023-10-20 15:07] LABS: AMPHETAMINES, URINE POSITIVE (NEGATIVE); BARBITURATES, URINE NEGATIVE (NEGATIVE); BENZODIAZEPINE, URINE NEGATIVE (NEGATIVE); BUPRENORPHINE, URINE NEGATIVE (NEGATIVE); CANNABINOID, URINE NEGATIVE (NEGATIVE); COCAINE, URINE NEGATIVE (NEGATIVE); ECSTASY, URINE NEGATIVE (NEGATIVE); FENTANYL, URINE NEGATIVE (NEGATIVE); METHADONE, URINE NEGATIVE (NEGATIVE); OPIATES, URINE NEGATIVE (NEGATIVE); OXYCODONE, URINE NEGATIVE (NEGATIVE); PHENCYCLIDINE, URINE NEGATIVE (NEGATIVE)
[2023-10-20 17:59] VITALS: BP 113/74
[2023-10-29] MEDS ORDERED: ONDANSETRON ODT8 MG PO (17:31)
[2023-10-30] MEDS ORDERED: VENTOLIN HFA18 GM INH (12:00)
[2023-10-30] MEDS ORDERED: CEPHALEXIN500 M1 PO (13:27)
== END 2023-10-20 18:00 | disposition home or self-care (01) ==
LOC: ED 12:53
PROVIDERS: Emergency Medicine
DX: T67.01XA Heatstroke and sunstroke, initial encounter (principal); X30.XXXA Exposure to excessive natural heat, initial encounter; F15.10 Other stimulant abuse, uncomplicated; Z59.00 Homelessness unspecified; F17.200 Nicotine dependence, unspecified, uncomplicated; Z88.8 Allergy status to other drugs, medicaments and biological substances; Z91.048 Other nonmedicinal substance allergy status; Z79.899 Other long term (current) drug therapy
CPT/HCPCS: 36415; 73080; 80053; 80307; 81001; 82553; 85025; 99284; A9270; J7030

== ENCOUNTER 2024-01-24 07:46 | Day surgery (SDC) | payer MEDICARE, OTHER ==
[2024-01-22 09:52] VITALS: BP 146/84
[~2024-01-24] VITALS: Ht 157.5 cm; Wt 68.6 kg
[~2024-01-24 07:46] MED LIST changes: +CEFAZOLIN SODIUM 2 GM/20 ML SYR IV SCH; +CEPHALEXIN500 M1 PO; +IBLOOD GLUCOSE TEST STRIP 1 EA TEST VI PRN; +IBU800 MG PO; +LACTATED RINGER'S 1,000 ML IV SCH; +LIDOCAINE HCL 1% 5 ML SDV INJ ONE; +ONDANSETRON ODT8 MG PO; +TYLENOL325 MG PO; +propofoL 200 MG/20 ML VIAL ONE
[2024-01-24 07:55] VITALS: BP 156/92
[2024-01-24] MEDS ORDERED: LACTATED RINGER'S 1,000 ML IV ONE (09:27)
--- NOTE | 2024-01-24 10:19 | NUR ---
01/24/24 1019 Inocencia Cisneros 0934 PT ARRIVED IN PACU NON RESPONSIVE TO NOXIOUS STIMULI WITH OPA IN PLACE. ABD SOFT AND LAYING ON L SIDE. 0958 PT REACTIVE. OPA REMOVED. 1005 AWAKENS TO VERBAL/TACTILE STIMULI, THEN FALLS BACK TO SLEEP SNORING. 1015 NO CHANGE IN PT STATUS.
--- NOTE | 2024-01-24 10:40 | NUR ---
PT ARRIVES TO DS FROM PACU VIA STRETCHER. PT IS DROWSY, BUT RESPONSIVE TO VERBAL STIMULI. PT RESPIRATIONS EVEN AND UNLABORED, NO SIGNS OF DISTRESS. PT ON RA AT THIS TIME W/O2 >90%. CALL LIGHT WITHIN REACH. REPORT RECIEVED FROM JONNATHAN FAY. PT RESTING W/EYES CLOSED.
[2024-01-24 10:42] VITALS: BP 130/80
--- NOTE | 2024-01-24 11:30 | NUR ---
PT RESTING IN BED W/EYES CLOSED. RESPIRATIONS EVEN AND UNLABORED. PER CPOX PT >90% ON RA. CALL LIGHT WITHIN REACH. PT RESPONSIVE TO VERBAL STIMULI AT THIS TIME, PT REPORTS NO NEEDS AT THIS TIME.
--- NOTE | 2024-01-24 13:00 | NUR ---
IN PT ROOM FOR ASSESSMENT. PT AWAKENS TO VERBAL STIMULI AND REPORTS WOULD LIKE DRINK OF WATER. PT TOLERATES WATER WITHOUT DIFFICULTY SWALLOWING. PT EATING PUDDING AND CRACKERS. PT REPORTS NO ONSET OF NAUSEA. PT SITS AT BEDSIDE TO GET DRESSED AND REPORTS NO DIZZINESS AT THIS TIME, CALL LIGHT WITHIN REACH WHILE PT GETS DRESSED.
[2024-01-24 13:16] VITALS: BP 142/92
--- NOTE | 2024-01-24 13:20 | NUR ---
THIS RN IN ROOM FOR VS, IV DC, AND DC EDUCATION. PT STATES VERBAL UNDERSTANDING TO DC EDUCATION AT THIS TIME AND NO FURTHER QUESTIONS. PT OFF OF UNIT VIA WC TO PASSENGER SIDE OF Plyfe (CCS WORKER) VEHICLE. PT REPORTS NO FURTHER NEEDS AT THIS TIME. ALL BELONGINGS IN PT POSSESSION AT THIS TIME.
--- NOTE | 2024-01-25 07:30 | OR ---
[facility] [address], [place] [address] Signed DATE OF OPERATION: 01/24/2024 SURGEON: Layo Lemon MD PREOPERATIVE DIAGNOSES: 1. Dark stool. 2. Minimal internal hemorrhoids. POSTOPERATIVE DIAGNOSES: 1. Minimal internal hemorrhoids. 2. Probable minimal diverticulosis. PROCEDURE: Colonoscopy without biopsy. ESTIMATED BLOOD LOSS: None. INDICATIONS: Merry is a 48-year-old female, who had changed her name. She originally went by Marcie. I helped her in 2006 at the age of 31 with a colonoscopy. She was having left lower quadrant abdominal pain. The colonoscopy was negative. I helped her again in 2014 at the age of 38 because of rectal bleeding. A biopsy from the rectum was unremarkable. She had minimal internal hemorrhoid tissue. Of course, she always requires monitored anesthesia care given her polysubstance abuse and severe posttraumatic stress disorder and so forth. That worked out well again today. In that regard, she did receive preoperative blood work and an EKG. She and her were homeless part of their life. He has now . She found some housing over in [place], [place]. She was concerned about some dark stool. Her primary care provider asked that she come see me for a followup colonoscopy. She knows very little about her family history. She has been on the 10 year rotation for colonoscopies. We finally found her records because of her name change and we had to use her date of . She also went in quite a bit of detail regarding her [place] repair. She has been dilated now several times. She told me food gets stuck. She even had to go to the emergency room once over at [facility]. In the office, I had given her a pamphlet on colonoscopy. We did review the nature of the test. There is risk including, but not limited to gas bloating, crampy abdominal pain, bloating, perforation, requiring surgery, and missed diagnosis. She had expressed understanding and wished to proceed. She wanted to go through her state insurance for her bowel prep. Therefore, she used an entire gallon of GoLYTELY along with our liquid diet. We had her hold ibuprofen 3 days prior to the procedure. Her Electronically Signed By: LAYO LEMON MD 01/25/24 0730 PATIENT NAME: MERRY SMITH OPERATIVE REPORT DATE OF : 75 REPORT #: [id number] PHYSICIAN: LAYO LEMON MD PCP: SUKHDEV HILL PA-C REPORT IS CONFIDENTIAL AND NOT TO BE RELEASED WITHOUT AUTHORIZATION [facility] [address], [place] [address] Signed caregiver had brought her to the office as well for her procedure today. She had expressed understanding and wished to proceed. PROCEDURE IN DETAIL: Merry was taken into our endoscopy suite and placed in the left lateral decubitus position. She was given monitored anesthesia care with propofol infusion per our nurse grain unloader machine. A digital rectal exam was performed and this was unremarkable. She had no external hemorrhoids. She had good sphincter tone. There were no masses. The adult colonoscope was introduced and advanced under direct visualization of the camera. It took a little abdominal compression to get the scope up through and into the cecum itself. Her prep was quite good. We could easily see the appendiceal orifice and the ileocecal valve. We took several pictures throughout for photodocumentation. The nurses were quite convinced that she had some early diverticular disease. Unfortunately, I did not have any pictures of those findings. Once in the rectum, the scope was retroflexed and again she just has very minimal internal hemorrhoid tissue. After this, the gas was suctioned out and the colonoscope removed. Merry tolerated the procedure quite well. RECOMMENDATIONS: Merry can return in 10 years for repeat screening colonoscopy. She will always need monitored anesthesia care. Layo Lemon MD ALB/MODL /[id number] cc: MD Sukhdev Link PA Copies: LAYO LEMON MD ~ Electronically Signed By: LAYO LEMON MD 01/25/24 0730 PATIENT NAME: MERRY SMITH OPERATIVE REPORT DATE OF : 75 REPORT #: [id number] PHYSICIAN: LAYO LEMON MD PCP: SUKHDEV HILL PA-C REPORT IS CONFIDENTIAL AND NOT TO BE RELEASED WITHOUT AUTHORIZATION
== END 2024-01-24 13:25 | disposition home or self-care (01) ==
LOC: DS 07:46
PROVIDERS: ATTEND Colon & Rectal Surgery
PROC: 0DJD8ZZ Inspection of Lower Intestinal Tract, Via Natural or Artificial Opening Endoscopic (ICD-10-PCS; principal; 2024-01-24 09:00)
DX: K64.8 Other hemorrhoids (principal); K92.1 Melena; F31.81 Bipolar II disorder; G43.909 Migraine, unspecified, not intractable, without status migrainosus; F15.10 Other stimulant abuse, uncomplicated; G89.21 Chronic pain due to trauma; F43.10 Post-traumatic stress disorder, unspecified; Z79.899 Other long term (current) drug therapy; Z88.8 Allergy status to other drugs, medicaments and biological substances
CPT/HCPCS: 00811; 84703; J0690; J2704; J7121